=== PATIENT | male | born 1945 | race Caucasian/White ===

== ENCOUNTER → 2021-03-30 | Outpatient (CLI) | payer OTHER ==
[~2021-03-30] MED LIST: ALPHAGAN P OP SO5 ML EYELF; AVODART 0.5 MG0.5 MG PO; CARVEDILOL3.125 MG PO; CRESTOR10 MG PO; ELIQUIS5 MG PO; LASIX20 MG PO; LISINOPRIL5 MG PO; LOPRESSOR 25 MG25 MG PO; LUMIGAN 0.01%2.5 ML EYELF; MYRBETRIQ50 MG PO; PROZAC40 MG PO; UROXATRAL 10 MG10 MG PO; XANAX0.25 MG PO; ZYPREXA2.5 MG PO
== END ==
LOC: HEART 5 09:55
DX: I42.0 Dilated cardiomyopathy (principal); R06.02 Shortness of breath; I08.3 Combined rheumatic disorders of mitral, aortic and tricuspid valves
CPT/HCPCS: 93306

== ENCOUNTER 2021-09-14 12:40 | Inpatient (IN) | payer OTHER ==
[~2021-09-14] VITALS: Ht 190.5 cm; Wt 128.0 kg
[2021-09-14 13:55] LABS: RED BLOOD COUNT 4.64 M/UL (4.20-5.50)
[2021-09-14 14:24] LABS: BUN/CREATININE RATIO 13 (0-10)
[2021-09-14] MEDS ORDERED: PAROXETINE HCL20 MG PO (15:40)
[2021-09-14] MEDS ORDERED: CARVEDILOL6.25 MG PO (15:41)
[2021-09-14] MEDS ORDERED: SPIRONOLACTONE25 MG PO (15:41)
[2021-09-15 01:31] LABS: HEMOGLOBIN 13.6 gm/dl (14.0-17.5); RED BLOOD COUNT 4.38 M/UL (4.20-5.50); WHITE BLOOD COUNT 11.2 K/UL (4.5-11.0)
[2021-09-15 01:55] LABS: BUN/CREATININE RATIO 12 (0-10)
[2021-09-15] MEDS ORDERED: CARVEDILOL6.25 MG PO (08:49)
[2021-09-15] MEDS ORDERED: ASPIRIN EC81 MG PO (08:50)
[2021-09-15] MEDS ORDERED: ONE-A-DAY MEN'1 EACH PO (08:51)
[2021-09-16 02:26] LABS: HEMOGLOBIN 12.6 gm/dl (14.0-17.5); RED BLOOD COUNT 3.96 M/UL (4.20-5.50)
[2021-09-16 02:27] LABS: WHITE BLOOD COUNT 8.2 K/UL (4.5-11.0)
[2021-09-16] MEDS ORDERED: MULTAQ 400 MG400 MG PO (09:40)
[2021-09-16] MEDS ORDERED: ELIQUIS 5 MG TAB5 MG PO (09:40)
[2021-10-22] MEDS ORDERED: LISINOPRIL10 MG PO (11:02)
[2021-10-22] MEDS ORDERED: MIRALAX 119 GR119 GM PO (11:06)
[2021-10-29] MEDS ORDERED: HYDROCODON-ACE1 EAC4 PO (08:34)
== END 2021-09-16 11:26 | disposition home or self-care (01) | DRG 309 ==
LOC: ER1 12:40 → CDU 14:52 → PROG CARE 14:52
PROVIDERS: Emergency Medicine; Internal Medicine; Physician Assistant; ADMIT Internal Medicine
PROC: B24BZZZ Ultrasonography of Heart with Aorta (ICD-10-PCS; principal; 2021-09-15)
PROC: 5A2204Z Restoration of Cardiac Rhythm, Single (ICD-10-PCS; 2021-09-15)
DX: I48.19 Other persistent atrial fibrillation (principal); N17.9 Acute kidney failure, unspecified; I42.0 Dilated cardiomyopathy; Z20.822 Contact with and (suspected) exposure to COVID-19; I12.9 Hypertensive chronic kidney disease with stage 1 through stage 4 chronic kidney disease, or unspecified chronic kidney disease; N18.30 Chronic kidney disease, stage 3 unspecified; I08.1 Rheumatic disorders of both mitral and tricuspid valves; I95.1 Orthostatic hypotension; I08.3 Combined rheumatic disorders of mitral, aortic and tricuspid valves; E78.5 Hyperlipidemia, unspecified; N40.0 Benign prostatic hyperplasia without lower urinary tract symptoms; Z79.4 Long term (current) use of insulin; Z82.49 Family history of ischemic heart disease and other diseases of the circulatory system; Z80.0 Family history of malignant neoplasm of digestive organs; Z79.01 Long term (current) use of anticoagulants; Z79.82 Long term (current) use of aspirin
CPT/HCPCS: 36415; 70450; 71045; 80048; 80053; 82550; 82553; 83735; 83880; 84439; 84443; 84484; 85025; 85027; 93005; 93312; 93320; 96374; 99285; J1200; J1650; J2250; J2270; J7030

== ENCOUNTER → 2021-10-22 | Outpatient (CLI) | payer OTHER ==
[~2021-10-22] MED LIST changes: +ASPIRIN EC81 MG PO; +CARVEDILOL6.25 MG PO; +ELIQUIS 5 MG TAB5 MG PO; +LISINOPRIL10 MG PO; +MIRALAX 119 GR119 GM PO; +MULTAQ 400 MG400 MG PO; +ONE-A-DAY MEN'1 EACH PO; +PAROXETINE HCL20 MG PO; +SPIRONOLACTONE25 MG PO
== END ==
LOC: OPSV2 10:00
PROVIDERS: Surgery
DX: Z01.818 Encounter for other preprocedural examination (principal); R94.31 Abnormal electrocardiogram [ECG] [EKG]
CPT/HCPCS: 36415; 80048; 93005

== ENCOUNTER 2021-10-29 18:33 | Emergency (ER) | payer OTHER ==
[~2021-10-29 18:33] MED LIST changes: +HYDROCODON-ACE1 EAC4 PO
== END 2021-10-29 19:00 | disposition home or self-care (01) ==
LOC: ER1 18:33
DX: R33.0 Drug induced retention of urine (principal); T41.45XA Adverse effect of unspecified anesthetic, initial encounter; I11.9 Hypertensive heart disease without heart failure; E78.5 Hyperlipidemia, unspecified; Z90.49 Acquired absence of other specified parts of digestive tract; Z91.048 Other nonmedicinal substance allergy status
CPT/HCPCS: 51702; 81001; 87086; 99283